=== PATIENT | female | born 1975 | race Caucasian/White ===

== ENCOUNTER 2024-07-08 14:46 | Outpatient (OUT) | payer BC, SELFPAY ==
[2024-07-08 15:20] LABS: Basophils Percent Auto 0.6 % (0.2-2.0); Eosinophils Absolute Auto 0.1 10^3/uL (0.0-0.7); Eosinophils Percent Auto 1.4 % (0.9-7.0); Hematocrit 39.2 % (36.0-48.0); Hemoglobin 13.3 g/dL (12.0-16.0); Immature Granulocytes Abs Auto 0.01 10^3/uL (0.00-0.03); Immature Granulocytes Pct Auto 0.2 % (0.0-0.5); Lymphocytes Absolute Auto 1.4 10^3/uL (1.2-3.8); Lymphocytes Percent Auto 28.3 % (20.5-60.0); Mean Corpuscular HGB Conc 33.9 g/dL (29.9-35.2); Mean Corpuscular Hemoglobin 28.7 pg (26.7-34.0); Mean Corpuscular Volume 84.7 fL (81.0-99.0); Mean Platelet Volume 9.7 fL (9.5-13.5); Monocytes Absolute Auto 0.4 10^3/uL (0.3-0.8); Monocytes Percent Auto 7.5 % (1.7-12.0); Neutrophils Absolute Auto 3.1 10^3/uL (1.4-6.5); Platelet Count 209 10^3/uL (150-450); Red Blood Count 4.63 10^6/uL (4.20-5.40); White Blood Count 4.9 10^3/uL (4.0-11.0)
[2024-07-08 15:37] LABS: Alanine Aminotransferase 21 U/L (14-59); Albumin Globulin Ratio 1.3; Albumin Level 4.2 g/dL (3.4-5.0); Alkaline Phosphatase 113 U/L (46-116); Anion Gap 12.2; Aspartate Amino Transferase 14 U/L (15-37); BUN Creatinine Ratio 14.4; Bilirubin Total 0.7 mg/dL (0.2-1.0); Carbon Dioxide 25.7 mmol/L (21.0-32.0); Chloride 102 mmol/L (98-107); Cholesterol 186 mg/dL (<=200); Estimated GFR (African America >60 (>=60 mL/min/1.73m^2); Estimated GFR (Non-African Ame >60 (>=60 mL/min/1.73m^2); Globulin 3.2 g/dL; Glucose 90 mg/dL (74-106); HDL Cholesterol 61 mg/dL (40-60); Potassium 3.9 mmol/L (3.5-5.1); Sodium 136 mmol/L (136-145); Thyroid Stimulating Hormone 3.271 uIU/mL (0.358-3.740); Total Protein 7.4 g/dL (6.4-8.2); Triglycerides 37 mg/dL (<=150); VLDL CHOLESTEROL 7.4 mg/dL
== END 2024-07-08 14:47 | disposition home or self-care (01) ==
LOC: LAB 14:49
PROVIDERS: PCP Family Medicine; Visit Provider Family Medicine
DX: Z00.00 Encounter for general adult medical examination without abnormal findings (principal)
CPT/HCPCS: 36415; 80053; 80061; 84443; 85025

== ENCOUNTER 2024-07-14 07:28 | Outpatient (OUT) | payer BC, SELFPAY ==
--- NOTE | 2024-07-14 | MM_ITS ---
Patient Name: LOWELL HORTA MR#: [id number] : 1975 Exam Date: 07/14/2024 Ordering Doctor: DR Edilma Benedict M.D. RADIOLOGY REPORT PROCEDURE: MM TOMOSYNTHESIS SCREENING BI COMPARISON: None. INDICATIONS: Screening for malignant neoplasm Calculator Name NCI Breast Cancer Risk Assessment Tool 5 Year Breast Cancer Risk 1.00% Lifetime Breast Cancer Risk 10.20% Personal Breast Cancer No Personal Ovarian Cancer No Treatments None Family Cancers None LOCATION: [facility] BREAST COMPOSITION: The breasts are heterogeneously dense,which may obscure small masses. FINDINGS: DIAGNOSTIC CATEGORY 1--NEGATIVE. NO CHANGE FROM COMPARISON ASSESSMENT. Scattered benign-appearing calcifications are present. RIGHT BREAST: No significant suspicious finding. LEFT BREAST: No significant suspicious finding. RECOMMENDATIONS: ROUTINE MAMMOGRAM AND CLINICAL EVALUATION IN 12 MONTHS. PLEASE NOTE: A NORMAL MAMMOGRAM DOES NOT EXCLUDE THE POSSIBILITY OF BREAST CANCER. A CLINICALLY SUSPICIOUS PALPABLE LUMP SHOULD BE BIOPSIED. Dictated by: Michael Lancaster MD on 07/14/2024 at 10:07 Approved by: Michael Lancaster MD on 07/14/2024 at 10:14
--- OUTSIDE RECORDS SUMMARY | 2024-07-14 07:35 | XMS_ITS | CCD ---
Author Organization [facility] Care Team Providers Care Foundation Stage Teacher Name Role Phone REQUEST, DR NONE LISTED Consulting Unavaila ble REQUEST, NONE LISTED Admitting Unavaila ble REQUEST, NONE LISTED Attending Unavaila ble REQUEST, NONE LISTED Admitting Unavaila ble REQUEST, NONE LISTED Attending Unavaila ble REQUEST, NONE LISTED Consulting Unavaila ble MIKY BROWNLEE Attending Unavailable MIKY BROWNLEE Consulting Unavailable MIKY BROWNLEE Admitting Unavailable Medications Current Medications Medication Drug Class(es) Dates Sig (Normalized) Sig (Original) escitalopram 20 mg oral tablet (1 source) Serotonin Reuptake Inhibitor Start: 07-08-2024 take 1 tablet by mouth once daily Escitalopram Oxalate (Lexapro) 20 mg tablet Active 20 MG PO Daily July 08, 2024 12:00am estrogens, conjugated (assisted) 0.625 mg/ml vaginal cream (1 source) Estrogen Start: 07-08-2024 Conjugated Estrogens Active 0.625 MG VAGINAL Daily July 08, 2024 12:00am off 5 days; repeat cycle losartan potassium 50 mg oral tablet (1 source) Angiotensin 2 Receptor Radha Start: 07-08-2024 take 50 mg by mouth once daily Losartan Active 50 MG PO daily July 08, 2024 12:00am prasterone 25 mg oral tablet (1 source) Start: 07-08-2024 take 1 tablet by mouth once daily Prasterone (Dhea) (Dhea) 25 mg tablet Active 25 MG PO Daily July 08, 2024 12:00am Problems Active Problems Problem Classification Problem Date Documented Da te Episodic/Chronic Other screening for suspected conditions (not mental disorders or infectious disease) (2 sources) Patient encounter status; Translations: [Encounter for screening mammogram for malignant neoplasm of breast] 07-08-2024 Episodic Unclassified (2 sources) Contact with and (suspected) exposure to; Translations: [Contact with and (suspected) exposure to] Onset: 01-07-2021 Viral infection (1 source) COVID-19; Translations: [COVID-19] Onset: 10-14-2020 Past or Other Problems Problem Classification Problem Date Documented Da te Episodic/Chronic Unclassified (1 source) Contact with and (suspected) exposure to; Translations: [Contact with and (suspected) exposure to] Onset: 10-10-2020 Results Test Name Value Interpretation Reference Range Facil ity Rapid Covid-19 PCR (CVDRPD)[facility] SEE BELOW Normal [facility] Comment on above: Result Comment: This test is not yet juice roved or cleared by the [place] Food and Drug Administration (FDA) . This test was developed by [employer] [place], [facility]. The performance characteristics of this test were validated by [facility]. The results are not intended to be used as the sole means for clinical diagnosis or patient management decisions. [facility] is authorized under Clinical Laboratory Improvement Amendments (CLIA) to perform high-complexity testing. When diagnostic testing is negative, the possibility of a false negative should be considered in the context of a patients recent exposures and the presence of clinical signs and symptoms consistent with SARS-CoV-2. Performed By: #### C VDRPD #### [facility] [address] [place] [address] Henok Hanna SARS-CoV-2 (COVID-19) RNA SHE+probe Ql (Unsp spec) Detected Invalid Interpretation Code NOT DETECTED [facility] Comment on above: Result Comment: This test is not yet juice roved or cleared by the [place] Food and Drug Administration (FDA). This test was developed by [employer] [place], [facility]. The performance characteristics of this test were validated by [facility]. The results are not intended to be used as the sole means for clinical diagnosis or patient management decisions. [facility] is authorized under Clinical Laboratory Improvement Amendments (CLIA) to perform high-complexity testing. Performed By: #### C VDRPD #### [facility] [address] [place] [address] Henok Hanna Vital Signs Date Time Vital Sign Value Performing Clinician Dinesh matthews 07-08-2024 13:45-0400 Body height 172.72 cm [facility] 07-08-2024 13:45-0400 Body mass index (BMI) [Ratio] 25.9 kg/m2 [facility] 07-08-2024 13:45-0400 Body weight 77.56 kg [facility] 07-08-2024 13:45-0400 Diastolic blood pressure 105 mm[Hg] [facility] 07-08-2024 13:45-0400 Heart rate 59 /min [facility] 07-08-2024 13:45-0400 Systolic blood pressure 162 mm[Hg] [facility] Encounters Encounter Date Encounter Type Care Provider Facility Start: 07-08-2024 Patient encounter status [facility] Start: 07-08-2024 End: 07-08-2024 ambulatory [facility] Work Phone: Start: 07-08-2024 End: 07-08-2024 Encounter for general adult medical examination without abnormal findings [facility] Start: 07-08-2024 End: 07-08-2024 Patient encounter procedure [facility] Work Phone: Start: 02-02-2021 End: 02-03-[address] NONE LISTED REQUEST Facility: Start: 01-12-2021 End: 01-13-[address] NONE LISTED REQUEST Facility: Start: 10-10-2020 End: 10-11-2020 ambulatory MIKY BROWNLEE Facility: Plan of Treatment Date Care Activity Detail Author Comprehensive metabo lic 2000 panel - Serum or Plasma [facility] enter MG Breast - bilateral Screening [facility] Payers Date Payer Category Payer Unknown [id number] 1975 Unknown [id number] 1959 Self-pay 1959 Self-pay [id number] Unknown [id number] [id number] [id number] Unknown [id number] [id number] [id number] Unknown Serena BC/BS [id number] Social History Date Type Detail Facility Start: 07-08-2024 Tobacco smoking status NHIS Never smoked tobacco (finding) [facility] Start: 1975 Sex Assigned At Female [facility] NEGATED: Highlighted row F[facility] Evaluation note Note Date & Type Note Facility Evaluation note Diagnosis Onset Date Screening mammogram for breast cancer acute Wellness examination acute [facility] Work Phone: Summary Purpose Family History No Family History Records Found Advance Directives Advance Directive Response Recorded Date/ Time Advance Directives No July 08, 2024 1:24pm Chief Complaint and Reason for Visit Chief Complaint wellness/bp concerns Reason for Visit Screening mammogram for breast cancer Wellness examination Additional Source Comments INFORMATION SOURCE (unrecogn ized section and content) DATE CREATED AUTHOR 02/01/2021 [facility] Care Teams (unrecognized sec tion and content) Team Status: Active Member Role Status Dates Edilma Benedict MD Primary Care Provider Active Team Status: Inactive Member Role Status Dates Edilma Benedict MD Primary Care Provide r, Attending Provider Active Start: July 08, 2024 End: July 08, 2024 Goals (unrecognized section and content) Goals may be documented in a n alternate section FOR RECORDS PERTAINING TO PATIENTS WHO ARE OR HAVE BEEN ENROLLED IN A CHEMICAL DEPENDENCY/SUBSTANCEABUSE PROGRAM, SOME INFORMATION MAY BE OMITTED. This clinical summary was aggregated from multiple sources. Caution should be exercised in using it in the provision of clinical care. This summary normalizes information from multiple sources, and as a consequence, information in this document may materially change the coding, format and clinical context of patient data. In addition, data may be omitted in some cases. CLINICAL DECISIONS SHOULD BE BASED ON THE PRIMARY CLINICAL RECORDS. [employer] provides no warranty or guarantee of the accuracy or completeness of information in this document.
== END 2024-07-14 07:29 | disposition home or self-care (01) ==
LOC: MAMMO 07:28
PROVIDERS: PCP Family Medicine; Visit Provider Family Medicine
DX: Z12.31 Encounter for screening mammogram for malignant neoplasm of breast (principal)
CPT/HCPCS: 77063; 77067